=== PATIENT | male | born 2000 | race Caucasian/White ===

== ENCOUNTER 2023-02-18 17:36 | Emergency (ER) | payer OTHER, SELFPAY ==
[2023-02-18 17:44] VITALS: BP 129/81; PULSE 70; RESP 20; TEMP 36.6; O2SAT 100; BMI 28.7
--- NOTE | 2023-02-18 22:14 | ED_ITS ---
HPI - Wound/Laceration General Chief Complaint: Wound/Laceration Stated Complaint: lt 5th finger cut at work Time Seen by Provider: 02/18/23 22:14 Source: patient Mode of arrival: Ambulatory History of Present Illness HPI narrative: Otherwise healthy 22-year-old gentleman was working today at [employer] had a knife in his left hand, he is left-hand dominant, put the knife tip down on the cutting board his hand slipped and he suffered a laceration to the palmar surface over the PIP joint crease. Initially had moderate amount of bleeding that is now controlled. Initially did not have sensation to the tip of his finger and has not been able to fully flex hisFinger at the D IP joint. No other injuries. Related Data Previous Rx's Medication Instructions Recorded cephalexin 500 mg capsule 500 mg PO TID #15 caps 02/18/23 Allergies Allergy/AdvReac Type Severity Reaction Status Date / Time Penicillins Allergy Severe Hives Verified 02/18/23 17:51 Review of Systems Review of Systems Narrative: Pertinent positive and negative findings as per HPI Patient History Social History Smoking Status: Former smoker Smoking Status: Former smoker alcohol intake frequency: 0-2 drinks per day Alcohol type: hard liquor Substance Use Type: does not use Exam Initial Vital Signs Initial Vital Signs: Vital Signs Temperature 97.8 F 02/18/23 17:44 Pulse Rate 70 02/18/23 17:44 Respiratory Rate 20 02/18/23 17:44 Blood Pressure 129/81 02/18/23 17:44 Pulse Oximetry 100 02/18/23 17:44 Oxygen Delivery Method Room Air 02/18/23 17:44 General: Alert appropriate in no acute distress Respiratory: Able to speak in full sentences, no obvious respiratory distress Skin: No obvious rashes, warm and dry Extremity: 4mm clean cut over palmar surface PIP joint 5th/small finger. no bleeding. the capillary refill and sensation distally. It is not clear that he can effectively flex his D IP joint and there is some concern for tendon injury. The wound is nicely reapproximated and is not sutured. Neurologic: Grossly intact no obvious asymmetries or abnormalities Psych: appropriate insight and affect, cooperative Course Orders Ordered: Discontinued Medications Bacitracin (Bacitracin Oint 0.9 Gm Pckt) 1 applic TOP NOW ONE Stop: 02/18/23 22:24 Last Admin: 02/18/23 22:45 Dose: 1 applic Documented By: SARA Diphtheria/Tetanus/Acell Pertussis (Tet,Diph,Pertuss(Acell),Vac/Pf 0.5 Ml Syringe) 0.5 ml IM .ONCE ONE Stop: 02/18/23 22:33 Last Admin: 02/18/23 22:59 Dose: 0.5 ml Documented By: SARA Vital Signs Vital signs: Vital Signs - 8 hr 02/18/23 17:44 02/18/23 23:28 Temperature 97.8 F Pulse Rate 70 68 Respiratory Rate 20 16 Blood Pressure 129/81 124/70 Pulse Oximetry 100 99 Oxygen Delivery Method Room Air Room Air MDM - Wound/Laceration MDM Narrative Medical decision making narrative: CC: Laceration to left small /ring finger, work-related this is an acute complication with potential for long-term consequences Data collected from: patient, Differential considered: simple laceration, tendon laceration Exam documented above, pertinent findings include: small laceration palmar surface. Concern for flexor tendon injury. No continued bleeding. No repair to the small wound. Discussion: The wound is dressed, placed in a splint. He is started on Keflex. tetanus shot is given. After the aluminum finger splint and dressing is placed the splint is re-evaluated. He remains neurovascularly intact. He will need follow-up with Orthopedics. L&I forms are completed Discharge Plan Departure Patient Disposition: Home Clinical Impression: Finger laceration involving tendon Qualifiers: Encounter type: initial encounter Qualified Code(s): S61.219A - Laceration without foreign body of unspecified finger without damage to nail, initial encounter Instructions: DI for Minor Laceration Activity Restrictions/Additional Instructions: Thank you for coming in today I am concerned that you did do some injury to the tendon in your small finger on your left hand. Because you are left-handed this is even more concerning. At this point bleeding is controlled and you do have full sensation to the tip of your finger which is quite encouraging. The wound itself is reapproximated nicely in small enough that I am not going to suture it. You do need to keep it clean and dry until you have been evaluated by the orthopedic surgeon. There is a significant risk for infection and I am going to place you on Keflex for the next 5 days. You are given a tetanus shot today Using 400 mg of ibuprofen (2 [id number] pills) and 1 Tylenol every 6 hours can be very helpful in controlling pain. you will need follow-up with orthopedic surgery please call [facility] at [phone]. Please explain to than you were seen in the emergency department for a hand / finger laceration with concern for tendon involvement and need to be seen in further evaluated. I would encourage you to call 1st thing in the morning. If you find that you are getting worse or develop any new symptoms, please feel free to return to the emergency department for further evaluation. Prescriptions: New cephalexin 500 mg capsule 500 mg PO TID Qty: 15 0RF Stand Alone Forms: Patient Portal/API
[2023-02-18] MEDS: BACITRACIN OINT 0.9 GM PCKT 1 APPLIC TOP (22:45)
[2023-02-18] MEDS: TET,DIPH,PERTUSS(ACELL),VAC/PF 0.5 ML SYRINGE IM (22:59)
[2023-02-18 23:28] VITALS: BP 124/70; PULSE 68; RESP 16; O2SAT 99
== END 2023-02-18 23:29 | disposition home or self-care (01) ==
PROVIDERS: Emergency Provider Emergency Medicine
DX: S61.217A Laceration without foreign body of left little finger without damage to nail, initial encounter (principal); S61.215A Laceration without foreign body of left ring finger without damage to nail, initial encounter; W26.0XXA Contact with knife, initial encounter; Y99.0 Civilian activity done for income or pay; Z23 Encounter for immunization
CPT/HCPCS: 90471; 99283; 90715